=== PATIENT | female | born 1970 | race Caucasian/White ===

== ENCOUNTER 2016-11-27 12:17 | Emergency (ER) | payer OTHER ==
[~2016-11-27] VITALS: Ht 162.6 cm; Wt 65.9 kg
[~2016-11-27 12:17] MED LIST: AMOXICILLIN 50500 MG PO; AUGMENTIN XR 101 TER PO; CLARITIN 1010 MG/TAB PO; DUO-KAPS1 CAP PO; LEVOTHYROXINE PO; LEVOXYL0.1 MG PO; LEXAPRO 10MG10 MG PO; LORTAB 5/500 501 TAB PO; MELATONIN3 M1 PO; NAPROXEN EC500 MG PO; NO HOME MEDICATIONS; NORCO 325 MG-51 TAB PO; ROBAXIN 50500 MG/TAB PO; SYNTHROID0.137 MG PO; VICODIN 5/5001 UDTAB PO; WELLBUTRIN XL300 M1 PO; ZITHROMAX Z PA250 MG PO
[2016-11-27 12:34] VITALS: BP 117/79; PULSE 74; TEMP 98.4
[2016-11-27] MEDS ORDERED: ALLEGRA 60MG TA60 MG PO (12:38)
[2016-11-27] MEDS ORDERED: AMOXICILLIN 8751 TAB PO (13:08)
== END 2016-11-27 13:24 | disposition home or self-care (01) ==
LOC: COL.ER 12:17
DX: J01.90 Acute sinusitis, unspecified (principal)

== ENCOUNTER 2017-10-27 09:19 | Emergency (ER) | payer OTHER ==
[~2017-10-27] VITALS: Ht 162.6 cm; Wt 65.9 kg
[~2017-10-27 09:19] MED LIST changes: +ALLEGRA 60MG TA60 MG PO; +AMOXICILLIN 8751 TAB PO; +MELAT3MGTAB PO; +SYNTHROID0.125 MG/T PO
[2017-10-27] MEDS ORDERED: WELLBUTRIN SR150 M1 PO (10:29)
[2017-10-27 10:31] VITALS: BP 125/76; PULSE 80; TEMP 97.6
== END 2017-10-27 10:31 | disposition home or self-care (01) ==
LOC: COL.ER 09:19
DX: H10.13 Acute atopic conjunctivitis, bilateral (principal)

== ENCOUNTER 2019-12-15 06:23 | Emergency (ER) | payer OTHER ==
[~2019-12-15] VITALS: Ht 162.6 cm; Wt 67.7 kg
[~2019-12-15 06:23] MED LIST changes: +WELLBUTRIN SR150 M1 PO
[2019-12-15 06:28] VITALS: TEMP 97.6
[2019-12-15] MEDS ORDERED: FLEXERIL 1010 MG/TAB PO (07:28)
[2019-12-15] MEDS ORDERED: NORCO 325 MG-51 TAB PO (07:28)
[2019-12-15 08:09] LABS: COLLECTION METHOD CLEAN CATCH
[2019-12-15 08:18] LABS: MUCOUS Present /lpf; PH 5 (5-8); SQUAMOUS EPITHELIAL 0-2 /hpf; URINE APPEARANCE Clear; URINE BACTERIA Rare /hpf; URINE BILIRUBIN Negative (NEGATIVE); URINE BLOOD Negative (NEGATIVE); URINE COLOR Yellow; URINE GLUCOSE Negative (NEGATIVE); URINE KETONE Negative (NEGATIVE); URINE LEUKOCYTE ESTERASE Negative (NEGATIVE); URINE NITRATE Negative (NEGATIVE); URINE PROTEIN(semi-quant) Negative (NEGATIVE); URINE RBC 0-2 /hpf; URINE UROBILINOGEN Negative (NEGATIVE)
[2019-12-15] MEDS ORDERED: CEPHALEXIN500 M1 PO (08:25)
[2019-12-15] MEDS ORDERED: NEURONTIN300 MG/CAP PO (08:35)
[2019-12-15 09:10] VITALS: BP 119/82; PULSE 60
== END 2019-12-15 09:13 | disposition home or self-care (01) ==
LOC: COL.ER 06:23
PROVIDERS: Emergency Medicine
DX: M54.5 Low back pain (principal); E03.9 Hypothyroidism, unspecified; Z79.890 Hormone replacement therapy; Z90.710 Acquired absence of both cervix and uterus
CPT/HCPCS: J1170; J1885; J2060

== ENCOUNTER 2022-07-15 16:56 | Emergency (ER) | payer OTHER ==
[~2022-07-15] VITALS: Ht 162.6 cm; Wt 71.8 kg
[~2022-07-15 16:56] MED LIST changes: +CEPHALEXIN500 M1 PO; +ESTRACE 1MG1 MG/TAB PO; +FLEXERIL 1010 MG/TAB PO; +NEURONTIN300 MG/CAP PO
[2022-07-15 17:14] VITALS: BP 132/79; TEMP 97.4
[2022-07-15 18:00] LABS: STREP SCREEN NEGATIVE
[2022-07-15 18:21] VITALS: PULSE 77
== END 2022-07-15 18:22 | disposition home or self-care (01) ==
LOC: COL.ER 16:56
PROVIDERS: Nurse Practitioner
DX: H92.01 Otalgia, right ear (principal); J02.9 Acute pharyngitis, unspecified

== ENCOUNTER 2024-03-24 08:33 | Emergency (ER) | payer OTHER ==
[~2024-03-24] VITALS: Ht 162.6 cm; Wt 66.4 kg
[2024-03-24 08:41] VITALS: TEMP 97.6
[2024-03-24] MEDS ORDERED: PAXLOVID CO-PA1 EACH PO (09:31)
[2024-03-24] MEDS ORDERED: PERCOCET 325 MG1 TA2 PO (09:32)
[2024-03-24 09:44] VITALS: BP 111/80; PULSE 90
[2024-03-24] MEDS ORDERED: oxyCODONE/Acetaminophen 5-325 MG TAB PO ONE (09:45)
== END 2024-03-24 09:44 | disposition home or self-care (01) ==
LOC: COL.ER 08:33
DX: U07.1 COVID-19 (principal); R05.9 Cough, unspecified; R09.81 Nasal congestion; R50.9 Fever, unspecified; R51.9 Headache, unspecified; Z73.0 Burn-out